=== PATIENT | female | born 1985 | race Caucasian/White ===

== ENCOUNTER 2018-07-01 11:15 | Inpatient (IN) | payer OTHER, SELFPAY ==
[2018-07-01 11:55] VITALS: BMI 22.9
[2018-07-01 12:39] LABS: Hematocrit 33.2 % (37-47); Hemoglobin 10.8 g/dl (12.0-15.0); Mean Corp Hgb Conc 32.5 g/gl (32-36); Mean Corpuscular Hgb 31.9 pg (27.0-32.0); Mean Corpuscular Volume 97.9 fL (81-99); Mean Platelet Vol. 10.3 fl (6.2-12.0); Platelet Count 174 K/mm3 (150-450); RBC Distribution Width CV 14.9 % (11.6-14.6); RBC Distribution Width SD 50.7 fl (35.1-43.9); Red Blood Count 3.39 M/mm3 (4.2-5.4); White Blood Count 6.8 K/mm3 (4.4-11.0)
[2018-07-01 12:52] LABS: Scan Indicated on CBC? Y/N NO
[2018-07-01] MEDS: 0.9% Saline Lock 10 ML Syringe IV (13:05)
[2018-07-01] MEDS: Lactated Ringers 1,000 ML 50 ML IV ×2 (13:05→16:40)
--- NOTE | 2018-07-01 13:34 | PCM.HP.OB ---
History Date of Admission: 07/01/18 Final MAYRA: 07/09/18 Final MAYRA Source: LMP Gestational age: 38 Weeks and 6 Days History of this : This is a 32 year-old, G [3], P [2], at 38 weeks gestational age- Srom AT HOME IN EARLY LABOR Allergies bee Allergy (Uncoded 05/03/16 08:08) Swelling dander Allergy (Uncoded 05/03/16 08:08) Hives Home Medications: Home Medications Vits [Prenatabs FA ] 1 tablet PO DAILY 11/17/14 Smoking Status: Never smoker Alcohol: None Number of Fetus(es): 1 Heart Tracin mod ninoska, + accels, no decels- cat 1 reactive TOCO Analysis: q3-4 min History Past Pregnancies: Past Pregnancies Delivery Date Name GA/Weeks Outcome Route Weight Gender Labor Length Anesthesia Delivery Location Provider FOB Labs: A neg, HIV neg, hep b neg, rub im, syphilis neg, gbs neg Expected Delivery Method: Spontaneous Vaginal Review of Systems Constitutional: Reports: Anorexia Physical Exam General: Alert, Oriented x3 Abdomen: Gravid Neurological: Cranial nerves II-XII grossly intact PIPING MANAGER: Normal external genitalia Estimated gestational size: Appropriate for gestational size Presentation: Cephalic Cervix Dilation (cm): 3 Station: -2 Effacement (%): 70 Assessment/Plan This is a 32 year-old, G [3], P [2], at 38 weeks gestational age with SROM clear fluid at home- in early labor 1) ADMIT TO L&d 2) MONITOR FHR/TOCO 3) ANTICIPATE
--- NOTE | 2018-07-01 13:37 | HP.PCM_ITS ---
History Date of Admission: 07/01/18 Final MAYRA: 07/09/18 Final MAYRA Source: LMP Gestational age: 38 Weeks and 6 Days History of this : This is a 32 year-old, G [3], P [2], at 38 weeks gestational age- Srom AT HOME IN EARLY LABOR Allergies bee Allergy (Uncoded 05/03/16 08:08) Swelling dander Allergy (Uncoded 05/03/16 08:08) Hives Home Medications: Home Medications Vits [Prenatabs FA ] 1 tablet PO DAILY 11/17/14 Smoking Status: Never smoker Alcohol: None Number of Fetus(es): 1 Heart Tracin mod ninoska, + accels, no decels- cat 1 reactive TOCO Analysis: q3-4 min History Past Pregnancies: Past Pregnancies Delivery Date Name GA/Weeks Outcome Route Weight Gender Labor Length Anesthesia Delivery Location Provider FOB Labs: A neg, HIV neg, hep b neg, rub im, syphilis neg, gbs neg Expected Delivery Method: Spontaneous Vaginal Review of Systems Constitutional: Reports: Anorexia Physical Exam General: Alert, Oriented x3 Abdomen: Gravid Neurological: Cranial nerves II-XII grossly intact 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
[2018-07-01] MEDS: Oxytocin 30 units/NS 500 ml 30 UNITS/500 ML IV.SOLN IV (14:01)
[2018-07-01] MEDS: fentaNYL-bupivacaine (epidural) 100 ML BAG EPIDURAL (17:39)
[2018-07-01] MEDS: Oxytocin 30 units/NS 500 ml 30 UNITS/500 ML IV.SOLN 334 UNITS IV (18:07)
--- NOTE | 2018-07-01 18:12 | PCM.OB.VAG ---
Vaginal Delivery Maternal Presentation: Spontaneous Rupture of Membranes Amniotic Membrane Rupture Type: Spontaneous at home Amniotic Fluid Description: Clear Final MAYRA: 07/09/18 Gestational age: 38 Weeks and 6 Days Date of Procedure: 07/01/18 Pre-Operative Diagnosis: SROM, term gestation, early labor Post-Operative Diagnosis: same, live male Surgery/ Procedure Performed: Spontaneous Vaginal Delivery Type of Anesthesia: Epidural Description of Procedure: of live male infant born without complications. Delayed cord clamping performed. Presentation: Vertex Placental Delivery Description: Spontaneous Placenta Disposition: [facility] Cord Vessel Description: 3 Vessels Nuchal Cord Compression: Without compression Cord Entanglement: None Estimated Blood Loss: 200 Infant A gender: Male (1 minute): 8 (5 minute): 9 Episiotomy Description: None Laceration: None Medications given after delivery: IV Pitocin Complications: None
[2018-07-01] MEDS: Oxytocin 30 units/NS 500 ml 30 UNITS/500 ML IV.SOLN 167 UNITS IV (18:37)
[2018-07-02 00:35] VITALS: BP 87/45; PULSE 76; RESP 17
[2018-07-02] MEDS: Naproxen 250 MG Tablet PO ×2 (01:51→12:32)
[2018-07-02 04:50] VITALS: BP 91/52; PULSE 67; RESP 16; TEMP 36.5
[2018-07-02 07:38] VITALS: BP 92/53; PULSE 75; RESP 15; TEMP 36.6; O2SAT 96
--- NOTE | 2018-07-02 08:48 | PCM.PN.OB ---
Subjective: Pt seen at bedside, doing well. pt reports good pain control. lochia mild. breast feeding well. voiding w/o difficulty - Physical Exam General: Alert, Oriented x3 Abdomen: Soft, Non Tender, Non-Distended, - - fundus firm Extremities: No Calf Tenderness Vital Signs Temp Pulse Resp BP Pulse Ox 97.9 F 75 15 92/53 L 96 07/02/18 07:38 07/02/18 07:38 07/02/18 07:38 07/02/18 07:38 07/02/18 07:38 Oxygen Delivery Method Room Air Weight: 66.5 kg Body Mass Index (BMI) 22.9 Intake and Output for Last 24 Hours 06/30/18 07/01/18 07/02/18 23:59 23:59 23:59 Output Total 1000 / 1000 1250 / 1250 Balance -1000 / -1000 -1250 / -1250 Laboratory Tests Past 24 Hrs 07/01/18 07/01/18 07/01/18 12:15 12:15 12:15 WBC 6.8 RBC 3.39 L Hgb 10.8 L Hct 33.2 L MCV 97.9 MCH 31.9 MCHC 32.5 RDW 14.9 H RDW Differential 50.7 H Plt Count 174 MPV 10.3 Blood Type A NEGATIVE Antibody Screen TNP NEGATIVE Screen Baby's Blood Type Baby's SAM 07/02/18 05:05 WBC RBC Hgb Hct MCV MCH MCHC RDW RDW Differential Plt Count MPV Blood Type Antibody Screen Screen NEGATIVE Baby's Blood Type A POSITIVE Baby's SAM NEGATIVE Medical Necessity - Tobacco Use Smoking Status: Never smoker Assessment/Plan PPD#1, doing well routine care pain mgmt [place] home
--- NOTE | 2018-07-02 08:51 | DCINST_ITS ---
Discharge Diet: No Restrictions Discharge Activity: Return to Normal Activity, May not drive while taking narcotic pain medications., May Shower May resume sexual activity in: 4-6 weeks Additional Activity Instructions:: Nothing in the vagina for 4-6 weeks. You may return to work/school in 6 weeks. Call your doctor if your incision/area has: Continuous Slow Oozing, Sudden Increased Bleeding, Increased Pain/ Swelling, Increased Redness, Foul Smelling Discharge Additional Instructions: If you experience any of the following, contact your healthcare provider. * Bleeding that soaks a pad every hour for 2 hours * Fever 100.4 or higher * Unrelieved incision or abdominal pain * Swelling, redness, discharge or bleeding from your incision or episiotomy site * Your incision begins to separate * Problems urinating (including inability to urinate or burning while urinating) . * Visual changes * Severe headache * Flu-like symptoms * Pain or redness in one of both of your breasts * Pain, warmth, tenderness or swelling in your legs, especially the calf area * Frequent nausea and vomiting * Symptoms of depression or anxiety If you experience any of the following, call 911 or go to the nearest Emergency Room. * Chest pain * Problems breathing * Seizure activity * Partial or complete paralysis of a body part, slurred speech, weakness or drooping of the face, or a sudden inability to walk or hold your balance Allergies/Adverse Reactions: Allergies bee Allergy (Uncoded 05/03/16 08:08) Swelling dander Allergy (Uncoded 05/03/16 08:08) Hives Medications to take at Discharge Vits [Prenatabs FA ] 1 tablet PO DAILY 11/17/14 Naproxen [Naprosyn] 250 - 500 mg PO Q8H PRN PRN #30 tab 07/02/18 The following prescriptions were given: Naproxen [Naprosyn] 250 - 500 mg PO Q8H PRN PRN #30 tab PRN Reason: MILD PAIN (-12/19) When: Call to make an appointment with your doctor in 2 weeks and again at 6 weeks post Please Follow Up With: Lena Castrejon MD Primary Care Physician: Care Physician,No Primary [Primary Care Provider] - Test Results: Test results from this visit will be discussed in further detail at your follow- up appointment, if applicable.
[2018-07-02 12:00] VITALS: BP 90/63; PULSE 91; RESP 16; TEMP 36.9; O2SAT 98
[2018-07-02] MEDS: Senna/Docusate Sodium 1 Tablet PO (12:32)
[2018-07-02 15:43] VITALS: BP 104/61; PULSE 82; RESP 16; TEMP 36.7; O2SAT 97
== END 2018-07-02 19:45 | disposition home or self-care (01) | DRG 775 ==
PROVIDERS: Obstetrics & Gynecology; Admitting Provider Obstetrics & Gynecology; Visit Provider Obstetrics & Gynecology
DX: O80 Encounter for full-term uncomplicated delivery (principal); Z3A.38 38 weeks gestation of pregnancy; Z37.0 Single live birth
CPT/HCPCS: 59025; 59050; 85027; 85461; 86850; 86900; 90384; 99218; J7120; 90686; A4216; G0378; J2790; J3490

== ENCOUNTER 2020-06-03 03:43 | Inpatient (IN) | payer SELFPAY ==
[2020-06-03] VITALS (65 sets, daily range): BP systolic 85–109; BP diastolic 50–65; PULSE 63–100; RESP 14–18; TEMP 36–37.7; O2SAT 90–100; BMI 24.4
[2020-06-03] MEDS: Lactated Ringers 500 ML 999 ML IV (04:00)
[2020-06-03 04:14] LABS: Absolute Lymphocyte Count 2.23 X10^3/uL (0.83-4.51); Absolute Neutrophil Count 5.3 X10^3/uL (2.0-7.7); Basophil# 0.02 X10^3/uL; Basophil% 0.2 % (0-1); Eosinophil# 0.14 X10^3/uL; Eosinophils% 1.7 % (0-5); Hematocrit 35.3 % (37-47); Hemoglobin 11.9 g/dL (12.0-15.0); Lymphocyte # 2.23 X10^3/ul (4.0); Lymphocyte % 26.9 % (19-41); Mean Corp Hgb Conc 33.7 g/dL (32-36); Mean Corpuscular Hgb 33.1 pg (27.0-32.0); Mean Corpuscular Volume 98.3 fL (81-99); Mean Platelet Vol. 10.5 fl (6.2-12.0); Monocyte% 7.2 % (0-10); NRBC Flagged by Analyzer 0 % (0-5); Neutrophil # 5.25 X10^3/uL (2.7-7.7); Neutrophil % 63.5 % (47-70); Platelet Count 177 K/mm3 (150-450); RBC Distribution Width CV 14.6 % (11.6-14.6); RBC Distribution Width SD 52.2 fl (35.1-43.9); Red Blood Count 3.59 M/mm3 (4.2-5.4); White Blood Count 8.3 K/mm3 (4.4-11.0)
[2020-06-03] MEDS: fentaNYL-bupivacaine (epidural) 100 ML BAG EPIDURAL ×2 (04:20→08:16)
[2020-06-03] MEDS: Lactated Ringers 1,000 ML 200 ML IV (04:54)
--- NOTE | 2020-06-03 07:35 | HP.PCM_ITS ---
History Date of Admission: 07/01/18 Final MAYRA: 06/02/20 Final MAYRA Source: LMP Gestational age: 40 Weeks and 1 Days History of this : This is a 34 year-old, @ 40.1 weeks, SROM in labor Allergies bee Allergy (Uncoded 05/03/16 08:08) Swelling dander Allergy (Uncoded 05/03/16 08:08) Hives Home Medications: Home Medications Vits [Prenatabs FA ] 1 tablet PO DAILY 11/17/14 Naproxen [Naprosyn] 250 - 500 mg PO Q8H PRN PRN #30 tab 07/02/18 Smoking Status: Never smoker Alcohol: None Number of Fetus(es): 1 History Past Pregnancies: Past Pregnancies Delivery Date Name GA/ Weeks Outcome Route Wt Sex Labor Length Anesthesia Delivery Location Provider FOB Expected Infant Delivery Method: Spontaneous Vaginal Physical Exam Vitals: Vital Signs Temp Pulse BP Pulse Ox 98.5 F 68 101/59 L 100 06/03/20 06:09 06/03/20 07:30 06/03/20 07:30 06/03/20 07:16 General: Alert, Oriented x3 Abdomen: Soft, Non Tender, Gravid Neurological: Cranial nerves II-XII grossly intact 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
[2020-06-03] MEDS: Oxytocin 30 units/NS 500 ml 30 UNITS/500 ML IV.SOLN IV (07:53)
[2020-06-03] MEDS: Oxytocin 30 units/NS 500 ml 30 UNITS/500 ML IV.SOLN 334 UNITS IV (09:46)
--- NOTE | 2020-06-03 09:57 | PCM.OPRPT ---
Vaginal Delivery Maternal Presentation: Active Labor, Spontaneous Rupture of Membranes Amniotic Membrane Rupture Type: Spontaneous at home Amniotic Fluid Description: Clear Final MAYRA: 06/02/20 Gestational age: 40 Weeks and 1 Days Date of Procedure: 06/03/20 Pre-Operative Diagnosis: term gestation, SROM Post-Operative Diagnosis: same, live male Surgery/ Procedure Performed: Spontaneous Vaginal Delivery Type of Anesthesia: Epidural Description of Procedure: of live male infant. Loose nuchal x 1 reduced prior to delivery. Head delivered with good maternal pushing efforts. Anterior shoulder was then delivered with gentle downward traction and good maternal pushing efforts. The infant was then delivered placed on the mother's chest for immediate skin the skin and delayed cord clamping. The was vigorous at time of delivery. Presentation: Vertex Placental Delivery Description: Spontaneous Placenta Disposition: [facility] Cord Vessel Description: 3 Vessels Nuchal Cord Compression: With compression Cord Entanglement: Around neck x 1, loose Estimated Blood Loss: 150 A gender: Male (1 minute): 8 (5 minute): 9 Episiotomy Description: None Laceration: None Medications given after delivery: IV Pitocin Complications: None
[2020-06-03] MEDS: Ibuprofen 600 MG Tablet PO (15:33)
[2020-06-03] MEDS: Acetaminophen 500 MG Tablet 1000 MG PO (20:11)
[2020-06-04] VITALS (8 sets, daily range): BP systolic 93–107; BP diastolic 54–61; PULSE 60–85; RESP 14–16; TEMP 36.6–37.1
[2020-06-04] MEDS: Ibuprofen 600 MG Tablet PO (01:16)
[2020-06-04] MEDS: Acetaminophen 500 MG Tablet 1000 MG PO (08:36)
--- NOTE | 2020-06-04 08:55 | PCM.PN.OB ---
Subjective: Doing well per patient and nursing staff. Ambulating and taking PO without difficulty. Voiding and passing flatus. Pain controlled. without difficulty. Lochia normal. Planning D/C home today. - Physical Exam Vitals/I&O's: Vital Signs Temp Pulse Resp BP Pulse Ox 98.8 F 82 14 93/54 L 100 06/04/20 08:35 06/04/20 08:35 06/04/20 08:35 06/04/20 08:35 06/03/20 11:55 Oxygen Delivery Method Room Air Weight: 156 lb 1.396 oz Body Mass Index (BMI) 24.4 Intake and Output for Last 24 Hours 06/02/20 06/03/20 06/04/20 23:59 23:59 23:59 Intake Total 2503.23 / 2503.23 Output Total 2300 / 2300 Balance 203.23 / 203.23 General: Alert, Oriented x3, Cooperative HEENT: Atraumatic, Normocephalic Neck: Trachea Midline Lungs: Clear to auscultation, Normal air movement, No rhonchi, No wheeze Cardiovascular: Regular rate, Regular Rhythm, No murmurs Abdomen: Bowel Sounds Present, Soft - fundus firm 2 below U Extremities: No edema - Beronica's Negative bilaterally Psych/Mental Status: Normal Affect, Appropriate Current Medications Acetaminophen (Tylenol) 1,000 mg PO Q8H PRN PRN PRN Reason: Pain Score 1-10/10 Last Admin: 06/04/20 08:36 Dose: 1,000 mg Documented by: Bisacodyl (Dulcolax) 10 mg RECTAL UD PRN PRN Reason: If no BM Dibucaine (Dibucaine) 1 applic TOPICAL TID PRN PRN; Protocol PRN Reason: Discomfort Hydrocortisone (Hytone) 1 applic TOPICAL TID PRN PRN; Protocol PRN Reason: Discomfort Ibuprofen (Motrin) 600 mg PO Q6H PRN PRN PRN Reason: Pain Score 1-10/10 Last Admin: 06/04/20 01:16 Dose: 600 mg Documented by: Methylergonovine Maleate (Methergine) 0.2 mg IM X1 PRN PRN Reason: Excess bleeding/uterine atony Ondansetron HCl (Zofran) 4 mg IV Q4H PRN PRN PRN Reason: Nausea Senna/Docusate Sodium (Senokot-S, Quin-Colace) 1 - 2 tablet PO DAILY PRN PRN PRN Reason: Constipation Simethicone (Mylicon) 80 mg PO PCHS PRN PRN Reason: Indigestion/Stomach pain Sodium Chloride () 5 - 15 ml IV UD PRN PRN Reason: SALINE FLUSH Medical Necessity - Tobacco Use Smoking Status: Never smoker Assessment/Plan A:PPD #1 P: 1) Planning D/C home today 2) Routine and instructions given 3) Follow up in 2 weeks and 6 weeks
--- NOTE | 2020-06-04 08:57 | DCINST_ITS ---
Discharge Diet: No Restrictions Discharge Activity: Return to Normal Activity, May not drive while taking narcotic pain medications., May Shower May resume sexual activity in: 4-6 weeks Weight Bearing Status: Full weight bearing Additional Activity Instructions:: Nothing in the vagina for 4-6 weeks. You may return to work/school in 6 weeks. Call your doctor if your incision/area has: Continuous Slow Oozing, Sudden Increased Bleeding, Increased Pain/ Swelling, Increased Redness, Foul Smelling Discharge Call your doctor if you observe: Fever of 101 or Higher, Using more than one pad per hour, Chest pain, Increased palpitations (irregular heartbeat), Calf discomfort, Uncontrolled pain Additional Instructions: If you experience any of the following, contact your healthcare provider. * Bleeding that soaks a pad every hour for 2 hours * Fever 100.4 or higher * Unrelieved incision or abdominal pain * Swelling, redness, discharge or bleeding from your incision or episiotomy site * Your incision begins to separate * Problems urinating (including inability to urinate or burning while urinating). * Visual changes * Severe headache * Flu-like symptoms * Pain or redness in one of both of your breasts * Pain, warmth, tenderness or swelling in your legs, especially the calf area * Frequent nausea and vomiting * Symptoms of depression or anxiety If you experience any of the following, call 911 or go to the nearest Emergency Room. * Chest pain * Problems breathing * Seizure activity * Partial or complete paralysis of a body part, slurred speech, weakness or drooping of the face, or a sudden inability to walk or hold your balance Allergies/Adverse Reactions: Allergies bee Allergy (Uncoded 05/03/16 08:08) Swelling dander Allergy (Uncoded 05/03/16 08:08) Hives Medications to take at Discharge Vits [Prenatabs FA ] 1 tablet PO DAILY 11/17/14 Naproxen [Naprosyn] 250 - 500 mg PO Q8H PRN PRN #30 tab 07/02/18 Please Follow Up With: Lena Castrejon MD When: Call to make an appointment with your doctor in 2 weeks and 6 weeks. If you had elevated Blood Pressure or 4th degree laceration you will need to be seen in 2 weeks. Primary Care Physician: Care Physician,No Primary [Primary Care Provider] - Test Results: Test results from this visit will be discussed in further detail at your follow- up appointment, if applicable.
== END 2020-06-04 14:50 | disposition home or self-care (01) | DRG 807 ==
LOC: WPOUT 03:46 → WP 03:46
PROVIDERS: Admitting Provider Obstetrics & Gynecology; Visit Provider Obstetrics & Gynecology
DX: O69.81X0 Labor and delivery complicated by cord around neck, without compression, not applicable or unspecified (principal); Z3A.40 40 weeks gestation of pregnancy; Z37.0 Single live birth
CPT/HCPCS: 59025; 59050; 85025; 86850; 86900; 86901; 90384; 99218; J7120; G0378; J2790